=== PATIENT | male | born 1955 | race Caucasian/White ===

== ENCOUNTER 2017-01-05 09:20 | Emergency (ER) | payer OTHER ==
[2017-01-05] MEDS ORDERED: Metoclopramide 10 MG/2 ML SDV IVPUSH ONE (09:39)
[2017-01-05] MEDS ORDERED: HYDROmorphone 1 MG/ML Syringe IVPUSH ONE (09:39)
[2017-01-05] MEDS ORDERED: LORazepam 2 MG/ML MDV IVPUSH ONE (09:40)
[2017-01-05] MEDS ORDERED: Dextrose 5%-0.9% NaCl 1,000 ML IV SCH (09:45)
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
--- NOTE | 2017-01-05 12:20 | CT ---
CT lumbar spine Technique: Multiple axial sections were obtained from the top of the posterior disc at T10-11 inferiorly through the L5-S1 disc. Reconstructed sagittal and coronal images were reviewed. T10-11: Mild disc space narrowing is seen. Posterior disc is preserved. No central canal stenosis or neural foraminal. T11-12: Mild disc space narrowing is seen. Posterior disc is preserved. No central canal stenosis or neural foraminal stenosis is seen. T12-L1: Posterior disc is preserved. No central canal stenosis or neural foraminal stenosis is seen. L1-2: Posterior disc is preserved. No central canal stenosis or neural foraminal. Slight degenerative change within the apophyseal joints is seen. L2-3: Slight circumferential disc bulge is seen. Posterior disc has a planar margin. Mild degenerative apophyseal change is seen. No central canal stenosis or neural foraminal stenosis is seen. L3-4: Slight posterior disc space narrowing is seen. Mild circumferential disc bulge is seen. Posterior disc has a planar margin. Mild degenerative apophyseal change is noted. No central canal stenosis or neural foraminal stenosis is seen. L4-5: Severe degenerative apophyseal change is seen. Minimal spondylolisthesis is seen. Diffuse posterior disc bulge is seen. No central canal stenosis is seen. Nerve roots appear to exit without definite compromise. L5-S1: Mild diffuse posterior disc bulge is seen. No central canal stenosis or neural foraminal stenosis is seen. Severe degenerative apophyseal change is seen. No fracture is identified. Impression: 1. Mild diffuse degenerative change as noted above. No focal disc herniation, central canal stenosis or neural foraminal is identified. Diagnostic code #2
== END 2017-01-05 11:55 | disposition home or self-care (01) ==
LOC: JD.ED 09:20
DX: M54.5 Low back pain (principal); I10 Essential (primary) hypertension; Z98.890 Other specified postprocedural states; Z79.899 Other long term (current) drug therapy
CPT/HCPCS: 72131; 96361; 96374; 96375; 99284; J1170; J2060; J2765; J7042